=== PATIENT | male | born 1960 | race Caucasian/White ===

== ENCOUNTER 2017-09-04 10:14 | Day surgery (SDC) | payer OTHER ==
[~2017-09-04] VITALS: Ht 180.3 cm; Wt 80.1 kg
[2017-09-04 10:54] VITALS: Ht 180.3 cm; Wt 80.1 kg
[2017-09-04] MEDS ORDERED: METFORMIN PO (11:09)
[2017-09-04] MEDS ORDERED: LAMICTAL PO (11:09)
[2017-09-04] MEDS ORDERED: JANUVIA PO (11:09)
[2017-09-04] MEDS ORDERED: LEVOTHYROXINE PO (11:09)
[2017-09-04 11:58] VITALS: BP 142/79; PULSE 64; RESP 19
[2017-09-04] MEDS ORDERED: PROPOFOL 20 ML ONE (11:58)
--- NOTE | 2017-09-04 12:21 | OPPN ---
Date/Time of Note Date/Time of Note DATE: 09/04/17 TIME: 11:58 Operative Report Preoperative Diagnosis Screening Postoperative Diagnosis Internal and external hemorrhoids No colon neoplasm is identified Operation/Procedure Performed Colonoscopy Surgeon see signature line nurse practitioner physician assistant None Anesthesia: MAC Estimated blood loss: none Transfusion Required none Specimen None Grafts/Implants none Complications none MIKE BETANCOURT MD Sep 04, 2017 12:21
--- NOTE | 2017-09-04 12:21 | OPPN ---
Date/Time of Note Date/Time of Note DATE: 09/04/17 TIME: 11:58 Operative Report Preoperative Diagnosis Screening Postoperative Diagnosis Internal and external hemorrhoids No colon neoplasm is identified Operation/Procedure Performed Colonoscopy Surgeon see signature line records management assistant None Anesthesia: MAC Estimated blood loss: none Transfusion Required none Specimen None Grafts/Implants none Complications none MIKE BETANCOURT MD Sep 04, 2017 12:21
--- NOTE | 2017-09-04 12:21 | OPPN ---
Date/Time of Note Date/Time of Note DATE: 09/04/17 TIME: 11:58 Operative Report Preoperative Diagnosis Screening Postoperative Diagnosis Internal and external hemorrhoids No colon neoplasm is identified Operation/Procedure Performed Colonoscopy Surgeon see signature line food and beverage assistant None Anesthesia: MAC Estimated blood loss: none Transfusion Required none Specimen None Grafts/Implants none Complications none MIKE BETANCOURT MD Sep 04, 2017 12:21
--- NOTE | 2017-09-05 06:26 | GILP ---
DATE OF PROCEDURE: NAME OF PROCEDURE: Colonoscopy. SURGEON: Cassandra Meraz MD PREOPERATIVE DIAGNOSIS: Screening colonoscopy. POSTOPERATIVE DIAGNOSES 1. Colonoscopy all the way to the cecum. 2. Internal and external hemorrhoids. 3. No colon neoplasm was identified. INDICATION FOR THE PROCEDURE: Mr. Miguel A Valdez is a 57-year-old male patient who was scheduled for a screening colonoscopy. The procedure and possible complications are well explained to the patient, he understood and consen garo to the procedure. DESCRIPTION OF PROCEDURE: Under the influence of anesthesia, the colonoscope was carefully introduc ed in the rectum and, under direct vision, it was advanced all the way to the cecum. FINDINGS: The patient had internal and external hemorrhoids. No colon neoplasm was identified. He tolerated the procedure very well and there were no complication from the procedure. At the end of the procedure, he was awake with stable vital signs and he was discharged home to the care of his family. IMPRESSION: 1. Colonoscopy all the way to the cecum. 2. Internal and external hemorrhoids. 3. No colon neoplasm was identified. PLAN: The next screening colonoscopy in 10 years. Dictated By: CASSANDRA BALTAZAR/MICAH Conf#: [id number] DID#: [id number]
== END 2017-09-04 13:22 | disposition home or self-care (01) ==
LOC: GIL 10:14
PROVIDERS: ATTEND Internal Medicine Gastroenterology
DX: Z12.11 Encounter for screening for malignant neoplasm of colon (principal); K64.8 Other hemorrhoids; K64.4 Residual hemorrhoidal skin tags; E11.9 Type 2 diabetes mellitus without complications; E03.9 Hypothyroidism, unspecified
CPT/HCPCS: 45378; 82962; Z7610